=== PATIENT | female | born 1940 | race Caucasian/White ===

== ENCOUNTER 2024-02-08 09:01 | Day surgery (SDC) | payer OTHER, SELFPAY ==
[2024-01-25 13:07] VITALS: BMI 41.9
[2024-01-25 13:43] LABS: % Basophils 0.4 % (0-2); % Eosinophils 2.8 % (0-6); % Immature Granulocytes 0.4 % (0-0.5); % Lymphocytes 10.8 % (20.5-51.1); % Monocytes 10.7 % (1.7-9.3); % Neutrophils 74.9 % (42.2-75.2); Absolute Eosinophils 0.3 10^3/uL (0-0.7); Absolute Neutrophils 6.7 10^3/uL (1.4-6.5); Hematocrit 30.7 % (37.0-47.0); Hemoglobin 9.7 g/dL (12.0-16.0); Mean Corp Hgb Conc. 31.6 g/dL (33.0-37.0); Mean Corpuscular Hgb 24.7 pg (27.0-31.0); Mean Corpuscular Volume 78.3 fL (81.0-99.0); Mean Platelet Volume 10.5 fL (7.4-10.4); Nucleated Red Blood Cells % 0 %; Platelet Count 248 10^3/uL (130-400); Red Blood Cell Count 3.92 10^6/uL (4.20-5.40); Red Cell Dist. Width 20.6 % (11.5-14.5)
[2024-01-25 13:53] LABS: INR 2.66; PT 28.7 Sec (11.4-14.6)
[2024-01-25 14:02] LABS: ALT (SGPT) 16 U/L (0-35); AST (SGOT) 22 U/L (14-36); Albumin 4.7 g/dl (3.5-5.0); Alkaline Phosphatase 101 U/L (38-126); Blood Urea Nitrogen 33 mg/dl (7-17); Calcium 9.5 mg/dl (8.4-10.2); Carbon Dioxide 27 mmol/L (22-30); Chloride 105 mmol/L (98-107); Estimated Creatinine Clearance 56 ml/min; Glucose 123 mg/dl (70-99); Magnesium 1.9 mg/dl (1.6-2.3); Potassium 4.8 mmol/L (3.5-5.1); Sodium 138 mmol/L (135-145); Total Bilirubin 0.8 mg/dl (0.2-1.3); Total Protein 7.2 g/dl (6.3-8.2); eGFR > 60.00
--- NOTE | 2024-01-26 17:30 | W.PN.UPDATE ---
Update Note
Progress Note Update
Microcytic anemia Hgb 9.7-unknown baseline-patien not available -attempted to call several times--Faxed to PCP
[2024-02-08] VITALS (14 sets, daily range): BP systolic 86–176; BP diastolic 47–139
[2024-02-08 09:53] LABS: PT 26.5 Sec (11.4-14.6)
[2024-02-08 10:01] LABS: Glucose - Point of Care 119 mg/dl (70-99)
[2024-02-08] MEDS: NSS 500 IV (10:12)
--- NOTE | 2024-02-08 10:29 | ITS.CL.ABL ---
Customs Compliance Specialist - Ablation
Ablation
Procedure Report:
Primary Heat Transfer Technician: Gurwinder Mario MD
Procedure Date: 02/08/2024
Patient History:
Patient is a pleasant 83 year old female with a past medical history of lymphedema, obesity, MEG, DM2, HTN, and persistent symptomatic atrial fibrillation.
See H&P for complete details.
Indication:
Symptomatic persistent AF
Arrhythmia Specific History:
Prior Medical Therapies for Rate and Rhythm Control:
[ ] Beta-chris
[ ] Calcium channel-chris
[ ] Amiodarone
[ ] Dronederone
[ ] Sotalol
[ ] Flecainide
[ ] Dofetilide
X Options limited by bradycardia
[ ] Options limited by comorbid renal disease
Prior Procedural Therapies for AF/AFL:
[ ] Cardioversion
[ ] Pulmonary Vein Isolation
[ ] Posterior Wall Isolation
[ ] Additional lines (Specify)
[ ] Surgical Riley-MAZE or PVI (Specify)
Procedure Performed:
X AF ablation procedure (83630) -- includes LA/CS pacing, trans-septal, 3D mapping, + ICE
[ ] +IV drug (74633)
[ ] +Other Arrhythmia (97085)
X +Other AF Line/ablation (60659) -- Posterior wall isolation
Risks and expected recovery has been explained in detail. Alternative options have been explored, and in a shared-decision making fashion we have decided that this was the most appropriate procedure.
Method
NPO status confirmed. Grounding pad applied. Defibrillator pads applied. Continuous surface ECG, pulse oximetry, and blood pressure were monitored. Procedure was performed under general anesthesia, with anesthesia services.
Both groins were clipped, prepped with Chloraprep, and draped in sterile fashion. Time out was called. Local anesthesia administered with bupivacaine. The right and left femoral veins were accessed for catheter placement, using ultrasound guidance,
micro-puncture needle/wire, and modified seldinger technique. 3 sheaths were placed. The following catheters were used:
[ ] Tacticath SE (D/F Curve) ablation catheter
X Viewflex 9Fr ICE catheter
X Inquiry decapolar 6Fr diagnostic catheter
[ ] CRD Hex 6Fr
[ ] Arctic Front Advance Cryoballoon ([ ]28mm[ ]23mm)
[ ] Achieve Advance mapping catheter ([ ]15mm[ ]20mm)
X FlexCath Contour 10 Fr with PulseSelect PFA Catheter
X Advisor HD Grid Mapping Catheter, SE
[ ] Acuson AcuNav 8 Fr ICE catheter
[ ]Other: [ ]
Intracardiac ultrasound (ICE) was carefully advanced into the right atrium to guide sheath placement over a J-wire, catheter placement, guide trans-septal puncture, identify potential complications, identify anatomic structures and ensure proper
contact between ablation catheter and tissue.
Heparin was given prior to trans-septal puncture. Heparin was given to achieve and maintain a target ACT of 300-400 seconds throughout the procedure.
Trans-septal access was performed under ICE guidance. The trans-septal puncture was performed with a SafeSept wire through a Brockenbrough needle assembly through the steerable sheath. The wire was visualized as it entered the LSPV and system
advanced under ICE guidance and fluoroscopy into the LA. The Brockenbrough needle assembly, SafeSept wire and sheath dilator were removed under negative pressure. LA pressure was measured and recorded.
ICE and 3D mapping was performed to identify relevant cardiac structures. A careful 3D map was created to assess for regions of low-voltage and abnormal electrogram signals using HD grid mapping catheter and PulseSelect catheter. Initial rhythm
noted to be regular atrial tachycardia likely atrial flutter. Initial entrainment attempt demonstrated long PPI-TCL from RA with repeat distal CS also long PPI-TCL. Left atrial map demonstrated anterior left atrial involvement likely related to
LSPV. Additional mapping was performed as outlined below.
Prior to ablation, glycopyrrolate was provided. PulseSelect catheter was advanced over J-wire to the ostium of each vein. Pulmonary vein isolation was performed with ostial and antral lesions in a circumferential manner. Contact was visualized via
EAM, ICE, fluoroscopy, and EGM signals. Posterior wall isolation was performed by anchoring the J-wire within the pulmonary vein and placing the PulseSelect catheter in contact with the posterior wall as visualized by aforementioned methods.
Following completion of ablation lesions, sinus rhythm was restored with a 200J synchronized DCCV and a post-ablation voltage/activation map was performed in sinus rhythm. Entrance and exit block were confirmed for each vein and the posterior wall.
Catheter and sheath were removed from the left atrium and post-ablation intracardiac echo evaluation was consistent with pre-ablation with no changes and no pericardial effusion and there is no left atrial thrombus or left ventricle thrombus seen.
Electrophysiology study was performed. No further arrhythmia was noted or induced at completion of the study. Hemostasis was obtained with Vascade for each sheath and with manual pressure. Protamine was used for reversal.
Estimated Blood Loss
< 10 mL
Complications
None
Fluoroscopy: 4.6 minutes; 13.69 mGy; DAP 2.97
Baseline Intervals:
QRS: 143 ms
QT: 489 ms
QTc: 538 ms
Post-Procedure Intervals:
IA: 333 ms
QRS: 141 ms
QT: 552 ms
QTc: 507 ms
A-A: 1184 ms
R-R: 1184 ms
AVWB: 470 ms
AERP: 600/410 ms
Recommendations
- Bedrest with straight-leg precautions as ordered
- Anticipate same day discharge if patient meeting clinical metrics
- Resume home medications as indicated
- Ok to resume anticoagulation tonight if patient and groin sites stable
- PPI daily for 30 days
- Plan for follow-up in office with Dr. Mario
Iglesia Ballard DO
Clinical Cardiac Toddler Teacher
cc: Emily Oropeza MD; Gurwinder Mario MD
[2024-02-08 12:33] LABS: ACT-LR - POC 372 Seconds (116-155)
[2024-02-08 12:48] LABS: ACT-LR - POC > 397 Seconds (116-155)
[2024-02-08 12:48] LABS: ACT-LR - POC 348 Seconds (116-155)
[2024-02-08 12:48] LABS: ACT-LR - POC > 397 Seconds (116-155)
[2024-02-08 12:48] LABS: ACT-LR - POC > 397 Seconds (116-155)
[2024-02-08 13:00] LABS: ACT-LR - POC 199 Seconds (116-155)
[2024-02-08] MEDS: TYLENOL 650 MG PO (14:14)
--- NOTE | 2024-02-08 16:23 | W.PN.UPDATE ---
Update Note
Progress Note Update
83 yo WF s/p PVI (same day). She feels good, no cp, sob, chinedu diet, voiding, amb w/o dizziness, EKG SR with Bifascicular block, R fem site c/d/i no HT, VASCADE closure. She will continue OAC [place] and will add PPI for 30 days. Activity restrictions
reviewed. She will f/u Dr. Mario in 2 mo. She is for d/c home after 4pm.
== END 2024-02-08 16:30 | disposition home or self-care (01) ==
LOC: CATH 09:01
PROVIDERS: ATTENDING PHYSICIAN Internal Medicine Cardiovascular Disease; FAMILY PHYSICIAN Family Medicine; OTHER PHYSICIAN Internal Medicine Cardiovascular Disease
DX: I48.19 Other persistent atrial fibrillation (principal); E66.01 Morbid (severe) obesity due to excess calories; I10 Essential (primary) hypertension; E11.9 Type 2 diabetes mellitus without complications; G47.33 Obstructive sleep apnea (adult) (pediatric); I89.0 Lymphedema, not elsewhere classified; M19.90 Unspecified osteoarthritis, unspecified site; D64.9 Anemia, unspecified; I45.2 Bifascicular block; Z96.652 Presence of left artificial knee joint; Z79.01 Long term (current) use of anticoagulants; Z79.899 Other long term (current) drug therapy; Z79.84 Long term (current) use of oral hypoglycemic drugs
CPT/HCPCS: C1732; C1894; C1733; C1769; 36415; 75572; 80053; 82962; 83735; 85025; 85347; 85610; 86850; 86900; 86901; 93005; 93656; 93657; C1760; Q9967